=== PATIENT | female | born 1980 | race Caucasian/White ===

== ENCOUNTER 2017-05-26 10:14 | Emergency (ER) | payer OTHER ==
[~2017-05-26] VITALS: Ht 167.6 cm; Wt 68.0 kg
[2017-05-26 10:18] VITALS: BP_SYST 126
--- NOTE | 2017-05-26 10:23 | NUR ---
Pt placed in bed 8, report endorsed to Jenn PIZANO
--- NOTE | 2017-05-26 10:26 | NUR ---
Pt complains of having pain while urinating since yesterday. Pt states she pas vaginal pain when she moves or urinates. Pt is AAO x 4 and ambulatory. Pt denies N/V or fever. No other injuries/complaints per patient or noted. at bedside.
--- NOTE | 2017-05-26 10:30 | NUR ---
ER Dr. Gonsalez at bedside examining patient.
[2017-05-26] MEDS ORDERED: KETOROLAC TROMETHAMINE 60 MG/2 ML VIAL IM ONE (10:49)
[2017-05-26] MEDS: KETOROLAC TROMETHAMINE 60 MG/2 ML VIAL IM ONE (10:50)
--- NOTE | 2017-05-26 10:50 | NUR ---
Medication was given, pt tolerated well. No adverse reaction, will continue to monitor.
[2017-05-26 11:11] LABS: BILIRUBIN,URINE 1+ (NEGATIVE); BLOOD, URINE NEGATIVE (NEGATIVE); CLARITY/URINE CLEAR (CLEAR); COLOR,URINE YELLOW (YELLOW); GLUCOSE,URINE NEGATIVE (NEGATIVE); KETONES,URINE NEGATIVE (NEGATIVE); LEUKOCYTE ESTERASE ,URINE NEGATIVE (NEGATIVE); NITRITE, URINE NEGATIVE (NEGATIVE); PROTEIN URINE TRACE (NEGATIVE)
[2017-05-26 11:35] VITALS: BP_SYST 123
--- NOTE | 2017-05-26 11:35 | NUR ---
Patient given written and verbal discharge instructions and verbalizes understanding. ER MD discussed with patient the results and treatment provided. Patient in stable condition. ID arm band removed. Rx of [place] given. Patient educated on pain management and to follow up with PMD. Pain Scale 4. MD aware, medication was given here and prescription home. Opportunity for questions provided and answered.
== END 2017-05-26 11:35 | disposition home or self-care (01) ==
LOC: SED 10:14
DX: R10.30 Lower abdominal pain, unspecified (principal); R30.0 Dysuria
CPT/HCPCS: 81003; 96372; 99283; J1885